=== PATIENT | male | born 1985 | race Caucasian/White ===

== ENCOUNTER → 2017-02-18 | Outpatient (CLI) | payer MEDICAID ==
[~2017-02-18] MED LIST: ACE3 PO; AMPH5TAB PO; CITA10SO7 PO; CYCL-332 PO; DUL20 PO; GABA-1 PO; HAL1 PO; LOR5 PO; MET5 PO; NAP250 PO; OMEP-153 PO; OMEP10CA40 PO; OXYC5SOL14 PO; PENI-22 PO; TRA50; VENL75CA58 PO
== END ==
LOC: RESP 19:42
PROVIDERS: ATTEND Nurse Practitioner Family
DX: G47.36 Sleep related hypoventilation in conditions classified elsewhere (principal); G47.61 Periodic limb movement disorder; G47.52 REM sleep behavior disorder